=== PATIENT | male | born 1930 | race African-American/Black ===

== ENCOUNTER → 2016-08-07 11:15 | Outpatient (CLI) | payer MEDICARE, BC ==
[~2016-08-07 11:15] MED LIST: ANCEF 1 GM/D5W 51 G1 IV; CUBICIN500 MG IV; FOLIC ACID1 MG PO; HYDROCODONE-APA1 TAB PO; METHOTREXATE2.5 MG PO; MOBIC7.5 MG PO; MULTI-DAY VITAM1 TAB PO; OMEGA-3100 MG PO; PREDNISONE5 MG PO; TENORMIN25 MG PO; ULTRACET TABLET1 TAB PO; VITAMIN A10000 UNIT PO; VITAMIN D31000 UNI2 PO; VITAMIN E400 UNI2 PO
[2016-08-07 11:49] LABS: BASOPHILS 0.1 % (0-2); EOSINOPHILS 2.6 % (0-7); HEMOGLOBIN 13.8 g/dL (13.5-17.5); IMMATURE GRANULOCYTES 0.5 % (0-5); MCH 30.5 pg (26.0-34.0); MCHC 32.1 g/dL (31.0-37.0); MCV 95.1 fL (80.0-100.0); MEAN PLATELET VOLUME 9.3 fL (7.4-10.4); MONOCYTES 3.8 % (2-11); PLATELET COUNT 257 10x3/uL (130-400); RBC 4.52 10x6/uL (4.20-6.10); RDW 14.9 % (11.5-14.5); WBC 14.7 10x3/uL (4.8-10.8)
[2016-08-07 12:24] LABS: ALBUMIN 3.3 g/dL (3.4-5.0); ANION GAP 9.4 mmol/L (8-16); BILIRUBIN - TOTAL 0.3 mg/dL (0.2-1.3); CALCIUM 9.2 mg/dL (8.5-10.1); CARBON DIOXIDE 30.5 mmol/L (21.0-32.0); CHOL - HDL RATIO 3.5 ratio (2.3-4.9); CREATININE - SERUM 1.2 mg/dL (0.6-1.3); LDL-HDL RATIO 2.1 ratio (1.5-3.5); POTASSIUM - SERUM 3.9 mmol/L (3.5-5.1); PROTEIN - SERUM 7.7 g/dL (6.4-8.2); THYROID STIMULATING HORMONE 1.31 uIU/mL (0.36-3.74)
== END | disposition home or self-care (01) ==
LOC: D.LAB 08:00
PROVIDERS: Family Medicine
DX: Z00.00 Encounter for general adult medical examination without abnormal findings (principal); Z12.5 Encounter for screening for malignant neoplasm of prostate; I10 Essential (primary) hypertension; E78.5 Hyperlipidemia, unspecified

== ENCOUNTER → 2016-08-14 14:34 | Outpatient (CLI) | payer MEDICARE, BC | END | disposition home or self-care (01) | LOC: D.CT 14:34 | DX: F17.200 Nicotine dependence, unspecified, uncomplicated (principal); J44.9 Chronic obstructive pulmonary disease, unspecified; R53.1 Weakness ==

== ENCOUNTER → 2020-06-18 15:45 | Outpatient (CLI) | payer MEDICARE, BC ==
[2020-06-18 16:07] LABS: BASOPHILS 0.5 % (0-2); EOSINOPHILS 16.6 % (0-7); HEMATOCRIT 34.9 % (42.0-54.0); HEMOGLOBIN 11.1 g/dL (13.5-17.5); IMMATURE GRANULOCYTES 0.3 % (0-5); LYMPHOCYTE ABS# 0.78 10x3/uL (1.32-3.57); LYMPHOCYTES 20.9 % (15-50); MCH 30.2 pg (26.0-34.0); MCHC 31.8 g/dL (31.0-37.0); MCV 94.8 fL (80.0-100.0); MEAN PLATELET VOLUME 11.3 fL (7.4-10.4); MONOCYTES 8.6 % (2-11); NEUTROPHIL ABS# 1.99 10x3/uL (1.78-5.38); NEUTROPHILS 53.1 % (40-80); RBC 3.68 10x6/uL (4.20-6.10); RDW 14.3 % (11.5-14.5); WBC 3.7 10x3/uL (4.8-10.8)
[2020-06-18 16:11] LABS: PLATELET COUNT 156 10x3/uL (130-400)
[2020-06-18 16:39] LABS: ALBUMIN 3.3 g/dL (3.4-5.0); ALKALINE PHOSPHATASE 75 U/L (30-120); ALT (SGPT) 16 U/L (10-68); BILIRUBIN - TOTAL 0.16 mg/dL (0.2-1.3); CALC OSMOLALITY 273 mosm/kg (275-300); CHLORIDE - SERUM 100 mmol/L (98-107); GLUCOSE 123 mg/dL (74-106); POTASSIUM - SERUM 3.9 mmol/L (3.5-5.1); PROTEIN - SERUM 7.6 g/dL (6.4-8.2); SODIUM 136 mmol/L (136-145); THYROID STIMULATING HORMONE 0.02 uIU/mL (0.36-3.74); UREA NITROGEN 14 mg/dL (7-18); eGFR NON AFRICAN AMERICAN 75 mL/min (90-120)
== END | disposition home or self-care (01) ==
LOC: D.LABREF 15:45
PROVIDERS: ATTEND Family Medicine
DX: I10 Essential (primary) hypertension (principal); E78.5 Hyperlipidemia, unspecified